=== PATIENT | male | born 1940 | race Caucasian/White ===

== ENCOUNTER 2024-06-28 10:11 | Emergency (ER) | payer OTHER ==
--- NOTE | 2024-06-28 11:01 | RAD REPORT ---
EXAMINATION: ONE VIEW CHEST XR CLINICAL INDICATION: COUGH TECHNIQUE: Frontal chest projection is submitted. Examination is limited by patient positioning and t echnique. COMPARISON: No prior exam. FINDINGS: The lungs are diffusely emphysematous but grossly clear. The heart is upper limit of normal in size. No displaced fractures identified. Sternotomy wires. IMPRESSION: COPD without an acute process suspected.
--- NOTE | 2024-06-28 11:08 | RAD REPORT ---
EXAMINATION: XR RIGHT FOOT CLINICAL INDICATION: Male, 84 years old. Pain;Swelling TECHNIQUE: Multiple views of the right foot were obtained. COMPARISON: 09/27/2022 FINDINGS: No acute fracture or dislocation is seen. Moderate calcaneal spurs.
[2024-06-28 11:19] LABS: Absolute Basophils 0.1 K/uL (0-0.5); Absolute Lymphocytes (CBC) 1.3 K/uL (0.7-4.9); Absolute Monocytes 1.3 K/uL (0.1-1.3); Absolute Neutrophil 9.7 K/uL (1.8-8.0); Basophils % 0.4 % (0-1.3); Eosinophils % 0.3 % (0-4.4); Hematocrit 37.1 % (39.6-49.0); Hemoglobin 11.9 g/dL (13.6-17.9); Lymphocytes % 10.2 % (15.3-44.8); MCH 29.4 pg (27.0-35.0); MCHC 32.1 g/dL (32.0-36.0); MCV 91.8 fL (80-100); MPV 7.3 fL (7.6-11.3); Monocytes % 10.4 % (3.3-12.3); Neutrophils % 78.7 % (41.7-73.7); Platelets 269 thou/uL (152-406); RBC Red Blood Cell Count 4.05 M/uL (4.33-5.43); Red Cell Distribution Width 14.1 % (12.1-15.2)
[2024-06-28] MEDS ORDERED: NA CHLORIDE 0.9% 1,000 ML ONE (11:20)
[2024-06-28 11:25] LABS: PT Prothrombin Time 13.2 SECONDS (9.4-12.5); Protime INR 1.18
--- NOTE | 2024-06-28 11:42 | RAD REPORT ---
EXAMINATION: US BILATERAL LOWER EXTREMITY VENOUS DOPPLER CLINICAL INDICATION: Pain;Swelling TECHNIQUE: Complete bilateral duplex sonography of the BILATERAL lower extremity veins was performed. The examination included compression for vein patency, color Doppler imaging and flow augmentation in response to distal compression of the distal external iliac, common femoral, femoral, popliteal, t ibial, and great and small saphenous veins. COMPARISON: No prior exam. FINDINGS: Duplex sonography testing of the veins of the BILATERAL lower extremity was performed. Color flow bobbi ging shows all veins to be compressible with [id number] color filling. Pulsatile and phasic flow is present within all lower extremity deep and superficial veins examined. IMPRESSION: There is no deep vein or superficial vein thrombosis.
[2024-06-28 11:44] LABS: Albumin 3.3 g/dL (3.4-5.0); Albumin/Globulin Ratio 0.8 (1.1-1.8); Anion Gap 10.5 mEq/L (5.0-15.0); Bilirubin Direct 0.3 mg/dL (0-0.2); Bilirubin Indirect, Calculated 0.6 mg/dL (0.2-0.8); Bilirubin Total 0.9 mg/dL (0.2-1.0); Globulin 3.9 g/dL (2.3-3.5); Magnesium 2.2 mg/dL (1.6-2.4); Potassium 3.5 mEq/L (3.5-5.1); Protein, Total 7.2 g/dL (6.4-8.2); Troponin High Sensitivity 32.3 pg/mL (<58.9)
[2024-06-28] MEDS ORDERED: VANCOMYCIN 1 GM/VIAL ONE (11:56)
[2024-06-28] MEDS ORDERED: ONDANSETRON 4 MG/2 ML VIAL ONE (11:56)
[2024-06-28] MEDS ORDERED: VANCOMYCIN 500 MG/VIAL ONE (11:57)
[2024-06-28] MEDS ORDERED: MORPHINE 4 MG/ML SYR ONE (11:57)
[2024-06-28] MEDS ORDERED: NA CHLORIDE 0.9% 250 ML ONE (11:57)
[2024-06-28] MEDS ORDERED: CEFAZOLIN SODIUM 2 GM/VIAL ONE (11:57)
[2024-06-28] MEDS ORDERED: levoFLOXacin 750 MG TAB ONE (11:57)
[2024-06-28] MEDS ORDERED: NA CHLORIDE 0.9% 100 ML ONE (11:57)
--- NOTE | 2024-06-28 11:57 | EDPHYS ---
Physician Documentation [facility] Name: Juan Gamble Age: 84 yrs Sex: Male : 1940 Arrival Date: 06/28/2024 Time: 10:11 Bed 3 Private MD: Andrews Orozco HPI: 06/28 11:49 This 84 yrs old Male presents to ER via Wheelchair with complaints of Right theresa foot swelling post Sx. 11:49 The patient presents with decreased range of motion, pain, swelling, tenderness. The theresa complaints affect the lateral aspect of right calf, right ankle, lateral aspect of right foot, medial aspect of right calf, medial aspect of right foot, right hamilton, anterior aspect of right ankle and dorsum of right foot. Context: resulted from a penetrating injury, an unknown cause, sp surgery. Modifying factors: The symptoms are alleviated by elevating leg, remaining still, the symptoms are aggravated by movement, weight bearing. Associated signs and symptoms: Pertinent positives: swelling, warmth, weakness. The patient presents with an abscess, moderate-sized, decreased range of motion, an injury, pain. Context: resulted from surgery 06/03. Onset: The symptoms/episode began/occurred 2 week(s) ago. Modifying factors: The symptoms are alleviated by elevation of extremity, the symptoms are aggravated by weight bearing, movement, wearing shoes. Historical: - Allergies: 10:23 PENICILLINS; iw - Home Meds: 10:23 clopidogrel 75 mg oral tablet daily [Active]; hydrocortisone 10 mg Oral tablet 2 times iw per day [Active]; lisinopril 20 mg Oral tablet daily [Active]; lovastatin 40 mg Oral tablet daily [Active]; levothyroxine 75 mcg tablet daily [Active]; - PSHx: 10:23 feet; valve replacement; iw - Immunization history:: Adult Immunizations not up to date. - Infectious Disease History:: Denies. - Social history:: Smoking status: Patient denies any tobacco usage or history of. ROS: 11:52 Constitutional: Negative for fever, chills, and weight loss, Eyes: Negative for injury, theresa pain, redness, and discharge, ENT: Negative for injury, pain, and discharge, Neck: Negative for injury, pain, and swelling, Cardiovascular: Negative for chest pain, palpitations, and edema, Respiratory: Negative for shortness of breath, cough, wheezing, and pleuritic chest pain, Abdomen/GI: Negative for abdominal pain, nausea, vomiting, diarrhea, and constipation, Back: Negative for injury and pain, : Negative for injury, bleeding, discharge, and swelling, Skin: Negative for injury, rash, and discoloration, Neuro: Negative for headache, weakness, numbness, tingling, and seizure, Psych: Negative for depression, anxiety, suicide ideation, homicidal ideation, and hallucinations, Allergy/Immunology: Negative for hives, rash, and allergies, Endocrine: Negative for neck swelling, polydipsia, polyuria, polyphagia, and marked weight changes, Hematologic/Lymphatic: Negative for swollen nodes, abnormal bleeding, and unusual bruising, 11:52 MS/extremity: Positive for contusion, decreased range of motion, pain, swelling, tenderness, of the right foot and right leg, Exam: 11:52 Constitutional: This is a well developed, well nourished patient who is awake, alert, theresa and in no acute distress. Head/Face: Normocephalic, atraumatic. Eyes: Pupils equal round and reactive to light, extra-ocular motions intact. Lids and lashes normal. Conjunctiva and sclera are non-icteric and not injected. Cornea within normal limits. Periorbital areas with no swelling, redness, or edema. ENT: Nares patent. No nasal discharge, no septal abnormalities noted. Tympanic membranes are normal and external auditory canals are clear. Oropharynx with no redness, swelling, or masses, exudates, or evidence of obstruction, uvula midline. Mucous membranes moist. Neck: Trachea midline, no thyromegaly or masses palpated, and no cervical lymphadenopathy. Supple, full range of motion without nuchal rigidity, or vertebral point tenderness. No Meningismus. Chest/axilla: Normal chest wall appearance and motion. Nontender with no deformity. No lesions are appreciated. Cardiovascular: Regular rate and rhythm with a normal S1 and S2. No gallops, murmurs, or rubs. Normal PMI, no JVD. No pulse deficits. Respiratory: Lungs have equal breath sounds bilaterally, clear to auscultation and percussion. No rales, rhonchi or wheezes noted. No increased work of breathing, no retractions or nasal flaring. Abdomen/GI: Soft, non-tender, with normal bowel sounds. No distension or tympany. No guarding or rebound. No evidence of tenderness throughout. Back: No spinal tenderness. No costovertebral tenderness. Full range of motion. Male : Normal genitalia with no discharge or lesions. Neuro: Awake and alert, GCS 15, oriented to person, place, time, and situation. Cranial nerves II-XII grossly intact. Motor strength 5/5 in all extremities. Sensory grossly intact. Cerebellar exam normal. Normal gait. Psych: Awake, alert, with orientation to person, place and time. Behavior, mood, and affect are within normal limits. 11:52 Skin: cellulitis, that is moderate, induration, that is moderate is noted, 12:01 ECG was reviewed by the Attending Physician. [facility] Vital Signs: 10:21 BP 138 / 60; Pulse 88; Resp 16; Temp 98.6; Pulse Ox 100% ; Weight 90.72 kg; Height 6 iw ft. 0 in. ; Pain 9/10; 12:45 BP 167 / 87; Pulse 85; Resp 17 S; Pulse Ox 100% on R/A; kc6 14:06 BP 128 / 50; Pulse 86; Resp 15 S; Pulse Ox 100% on R/A; kc6 15:35 BP 110 / 66; Pulse 87; Resp 17 S; Pulse Ox 100% on R/A; kc6 10:21 Body Mass Index 27.12 (90.72 kg, 182.88 cm) iw 10:21 Pain Scale: Adult iw Douglas Coma Score: 11:52 Eye Response: spontaneous(4). Motor Response: obeys commands(6). Verbal Response: theresa oriented(5). Total: 15. MDM: 10:39 Medical Screening Exam initiated [facility] 11:53 Differential diagnosis: closed fracture, contusion, abrasion, sprain, gout, cellulitis. [facility] Data reviewed: vital signs, nurses notes, lab test result(s), EKG, radiologic studies, doppler, plain films. Consideration of Admission/Observation Escalation of care including admission/observation considered. I considered the following discharge prescriptions or medication management in the emergency department Medications were administered in the Emergency Department. See MAR. Independent interpretation of the following test(s) in the Emergency Department EKG: See my EKG interpretation above. Test considered but Not performed: MRI: no mri foot. Historians other than the Patient: Spouse/Significant Other: well informed. Care significantly affected by the following chronic conditions: Chronic Obstructive Pulmonary Disease. 06/28 10:40 Order name: Basic Metabolic Panel; Complete Time: 11:48 [facility] 06/28 10:40 Order name: CBC with Diff; Complete Time: 11:48 06/28 10:40 Order name: LFT's; Complete Time: 11:48 06/28 10:40 Order name: Magnesium; Complete Time: 11:48 06/28 10:40 Order name: NT PRO-BNP; Complete Time: 11:48 06/28 10:40 Order name: PT-INR; Complete Time: 11:48 [facility] 06/28 10:40 Order name: Troponin HS; Complete Time: 11:48 [facility] 06/28 10:40 Order name: Blood Culture Adult (2) theresa 06/28 10:40 Order name: CRP; Complete Time: 11:48 [facility] 06/28 10:40 Order name: XRAY Chest (1 view); Complete Time: 11:48 [facility] 06/28 10:40 Order name: US Extremity Venous W Compression Bunny; Complete Time: 11:48 [facility] 06/28 10:40 Order name: Foot Right 3 View XRAY; Complete Time: 11:48 06/28 10:40 Order name: Cardiac monitoring; Complete Time: 10:55 [facility] 06/28 10:40 Order name: EKG - Nurse/Tech; Complete Time: 10:55 [facility] 06/28 10:40 Order name: IV Saline Lock; Complete Time: 11:14 [facility] 06/28 10:40 Order name: Labs collected and sent; Complete Time: 11:14 [facility] 06/28 10:40 Order name: O2 Per Protocol; Complete Time: 10:41 [facility] 06/28 10:40 Order name: O2 Sat Monitoring; Complete Time: 10:42 [facility] EC:01 Rate is 77 beats/min. Rhythm is regular. QRS [place] is Normal. [place] interval is prolonged threesa at 214 msec. QRS interval is normal. QT interval is normal. No Q waves. T waves are Normal. No ST changes noted. Clinical impression: NSR w/ Non-specific ST/T Changes and No evidence of ischemia. Interpreted by me. Reviewed by me. Administered Medications: 11:53 Drug: NS 0.9% IV 500 ml 500 ml IV at 1 bolus once; to be given as a bolus over 30 kc6 minutes Volume: 500 ml; Route: IV; Rate: 1 bolus; Site: left antecubital; 12:46 Follow up: Response: No adverse reaction; IV Status: Completed infusion; IV Intake: kc6 500ml 11:53 Drug: NS 0.9% IV 500 ml 500 ml IV at 125 ml/hr once Volume: 500 ml; Route: IV; Rate: kc6 125 ml/hr; Site: left antecubital; 12:16 Drug: vancoMYCIN IVPB 1.5 grams IVPB at calculated rate once Route: IVPB; Rate: kc6 calculated rate; Site: left antecubital; 13:19 Follow up: Response: No adverse reaction; IV Status: Completed infusion; IV Intake: kc6 250ml 12:16 Drug: morphine IVP or IV 4 mg IVP once over 4 mins Route: IVP; Infused Over: 4 mins; kc6 Site: left antecubital; 12:46 Follow up: Response: No adverse reaction; Pain is decreased; RASS: Alert and Calm (0) kc6 12:16 Drug: Ondansetron IVP 4 mg IVP once; over 2 minutes Route: IVP; Site: left antecubital; kc6 12:46 Follow up: Response: No adverse reaction kc6 12:16 Drug: LevOfloxacin PO 750 mg PO once Route: PO; kc6 12:46 Follow up: Response: No adverse reaction kc6 13:19 Drug: ceFAZolin IVPB 2 grams IVPB once over 30 mins; (mix in 100 mL NS) Route: IVPB; kc6 Infused Over: 30 mins; Site: left antecubital; 14:05 Follow up: Response: No adverse reaction; IV Status: Completed infusion; IV Intake: kc6 100ml Disposition Summary: 06/28/24 11:56 Transfer Ordered Notes: Transfer Location: [facility] theresa Reason: Higher level of care theresa Condition: Fair theresa Problem: new theresa Symptoms: have improved theresa Accepting Physician: to dr alejandro(06/28/24 15:37) kc6 Diagnosis - Cellulitis of other parts of limb - right foot, sp foot surgey 06/03 theresa - Elevated white blood cell count theresa Forms: - Medication Reconciliation Form theresa - SBAR form theresa Signatures: Dispatcher [employer] Andrews Locke MD MD cha Williams, Irene RN RN iw Amber Barajas RN RN kc6 Corrections: (The following items were deleted from the chart) 10:26 10:23 Allergies: No Known Allergies; [facility] 10:41 10:41 BASIC METABOLIC PANEL+C.LAB.BRZ ordered. EDMS EDMS 10:41 10:41 CBC+H.LAB.BRZ ordered. EDMS EDMS 10:41 10:41 HEPATIC FUNCTION+C.LAB.BRZ ordered. EDMS EDMS 10:41 10:41 MAGNESIUM+C.LAB.BRZ ordered. EDMS EDMS 10:41 10:41 PROBNP+C.LAB.BRZ ordered. EDMS EDMS 10:41 10:41 PROTIME (+INR)+COAG.LAB.BRZ ordered. EDMS EDMS 10:41 10:41 Troponin High Sensitivity+C.LAB.BRZ ordered. EDMS EDMS 10:41 10:41 BLOOD CULTURE*+BA.LAB.BRZ ordered. EDMS EDMS 10:41 10:41 C-REACTIVE PROTEIN+C.LAB.BRZ ordered. EDMS EDMS 10:41 10:41 Chest Single View+RAD.RAD.BRZ ordered. EDMS EDMS 10:41 10:41 Extrem Venous W Compression Bunyn+US.RAD.BRZ ordered. EDMS EDMS 10:41 10:41 Foot Right 3 View+RAD.RAD.BRZ ordered. EDMS EDMS 15:37 11:[address] flavia cardenas kc6
--- NOTE | 2024-06-28 11:57 | ER ---
Nurse's Notes [facility] Name: Juan Gamble Age: 84 yrs Sex: Male : 1940 Arrival Date: 06/28/2024 Time: 10:11 Bed 3 Private MD: Diagnosis: Cellulitis of other parts of limb-right foot, sp foot surgey 06/03;Elevated white blood cell count Presentation: 06/28 10:21 Chief complaint: Parent and/or Guardian states: he had surgery to remove bone spurs on iw both feet the day before thanksgiving and now his right foot is red and swollen and moving up the leg. Coronavirus screen: At this time, the client does not indicate any symptoms associated with coronavirus-19. Ebola Screen: No symptoms or risks identified at this time. Initial Sepsis Screen: Does the patient meet any 2 criteria? No. Patient's initial sepsis screen is negative. Does the patient have a suspected source of infection? No. Patient's initial sepsis screen is negative. Risk Assessment: Do you want to hurt yourself or someone else? Patient reports no desire to harm self or others. Onset of symptoms was June 2024. 10:21 Method Of Arrival: Wheelchair iw 10:21 Acuity: BRAD 3 iw Historical: - Allergies: 10:23 PENICILLINS; iw - Home Meds: 10:23 clopidogrel 75 mg oral tablet daily [Active]; hydrocortisone 10 mg Oral tablet 2 times iw per day [Active]; lisinopril 20 mg Oral tablet daily [Active]; lovastatin 40 mg Oral tablet daily [Active]; levothyroxine 75 mcg tablet daily [Active]; - PSHx: 10:23 feet; valve replacement; iw - Immunization history:: Adult Immunizations not up to date. - Infectious Disease History:: Denies. - Social history:: Smoking status: Patient denies any tobacco usage or history of. Screenin:35 [facility] ED Fall Risk Assessment (Adult) History of falling in the last 3 months, kc6 including since admission No falls in past 3 months (0 pts) Confusion or Disorientation No (0 pts) Intoxicated or Sedated No (0 pts) Impaired Gait No (0 pts) Mobility Assist Device Used No (0 pt) Altered Elimination No (0 pt) Score/Fall Risk Level 0 - 2 = Low Risk Oriented to surroundings, Maintained a safe environment. Abuse screen: Denies threats or abuse. Denies injuries from another. Nutritional screening: No deficits noted. Tuberculosis screening: No symptoms or risk factors identified. Assessment: 10:35 General: Appears in no apparent distress. comfortable, well groomed, well developed, kc6 Behavior is calm, cooperative, appropriate for age. Pain: Complains of pain in right foot. Neuro: Level of Consciousness is awake, alert, obeys commands, Oriented to person, place, time, situation, Appropriate for age. Cardiovascular: Capillary refill < 3 seconds. Respiratory: Airway is patent Trachea midline Respiratory effort is even, unlabored, Respiratory pattern is regular, symmetrical. GI: No signs and/or symptoms were reported involving the gastrointestinal system. : No signs and/or symptoms were reported regarding the genitourinary system. EENT: No signs and/or symptoms were reported regarding the EENT system. Derm: Skin is healthy with good turgor, Skin is dry, Skin is jaundiced, pale, Skin temperature is warm Wound noted dorsum of right foot Wound is slightly open without any drainage. wound has erythema and swelling. Musculoskeletal: Circulation, motion, and sensation intact. Range of motion: intact in all extremities, Swelling present in right foot. 11:35 Reassessment: Patient appears in no apparent distress at this time. No changes from kc6 previously documented assessment. Patient and/or family updated on plan of care and expected duration. Pain level reassessed. Patient is alert, oriented x 3, equal unlabored respirations, skin warm/dry/pink. 12:45 Reassessment: Patient appears in no apparent distress at this time. No changes from kc6 previously documented assessment. Patient and/or family updated on plan of care and expected duration. Pain level reassessed. Patient is alert, oriented x 3, equal unlabored respirations, skin warm/dry/pink. 13:45 Reassessment: Patient appears in no apparent distress at this time. No changes from kc6 previously documented assessment. Patient and/or family updated on plan of care and expected duration. Pain level reassessed. Patient is alert, oriented x 3, equal unlabored respirations, skin warm/dry/pink. 15:35 Reassessment: Patient appears in no apparent distress at this time. No changes from kc6 previously documented assessment. Patient and/or family updated on plan of care and expected duration. Pain level reassessed. Patient is alert, oriented x 3, equal unlabored respirations, skin warm/dry/pink. Patient states feeling better. Patient states symptoms have improved. Vital Signs: 10:21 BP 138 / 60; Pulse 88; Resp 16; Temp 98.6; Pulse Ox 100% ; Weight 90.72 kg; Height 6 iw ft. 0 in. ; Pain 9/10; 12:45 BP 167 / 87; Pulse 85; Resp 17 S; Pulse Ox 100% on R/A; kc6 14:06 BP 128 / 50; Pulse 86; Resp 15 S; Pulse Ox 100% on R/A; kc6 15:35 BP 110 / 66; Pulse 87; Resp 17 S; Pulse Ox 100% on R/A; kc6 10:21 Body Mass Index 27.12 (90.72 kg, 182.88 cm) iw 10:21 Pain Scale: Adult iw Francis Coma Score: 11:52 Eye Response: spontaneous(4). Motor Response: obeys commands(6). Verbal Response: theresa oriented(5). Total: 15. ED Course: 10:15 Patient arrived in ED. ra3 10:23 Triage completed. iw 10:26 Amber Barajas, RN is Primary Nurse. kc6 10:26 Arm band placed on. iw 10:35 Patient has correct armband on for positive identification. Bed in low position. Call kc6 light in reach. Side rails up X 1. Adult w/ patient. Pulse ox on. NIBP on. Door closed. Noise minimized. Lights dimmed. Warm blanket given. Pillow given. 10:39 Andrews Yao MD is Attending Physician. theresa 10:53 XRAY Chest (1 view) In Process Unspecified. EDMS 10:53 Foot Right 3 View XRAY In Process Unspecified. EDMS 11:14 Inserted saline lock: 20 gauge in left antecubital area, using aseptic technique. Blood kc6 collected. Flushed with 10 mL NS. Patient maintains SpO2 saturation greater than 95% on room air. 11:40 US Extremity Venous W Compression Bunny In Process Unspecified. EDMS 15:36 No provider procedures requiring assistance completed. Patient transferred, IV remains kc6 in place. Administered Medications: 11:53 Drug: NS 0.9% IV 500 ml 500 ml IV at 1 bolus once; to be given as a bolus over 30 kc6 minutes Volume: 500 ml; Route: IV; Rate: 1 bolus; Site: left antecubital; 12:46 Follow up: Response: No adverse reaction; IV Status: Completed infusion; IV Intake: kc6 500ml 11:53 Drug: NS 0.9% IV 500 ml 500 ml IV at 125 ml/hr once Volume: 500 ml; Route: IV; Rate: kc6 125 ml/hr; Site: left antecubital; 12:16 Drug: vancoMYCIN IVPB 1.5 grams IVPB at calculated rate once Route: IVPB; Rate: kc6 calculated rate; Site: left antecubital; 13:19 Follow up: Response: No adverse reaction; IV Status: Completed infusion; IV Intake: kc6 250ml 12:16 Drug: morphine IVP or IV 4 mg IVP once over 4 mins Route: IVP; Infused Over: 4 mins; kc6 Site: left antecubital; 12:46 Follow up: Response: No adverse reaction; Pain is decreased; RASS: Alert and Calm (0) kc6 12:16 Drug: Ondansetron IVP 4 mg IVP once; over 2 minutes Route: IVP; Site: left antecubital; kc6 12:46 Follow up: Response: No adverse reaction kc6 12:16 Drug: LevOfloxacin PO 750 mg PO once Route: PO; kc6 12:46 Follow up: Response: No adverse reaction kc6 13:19 Drug: ceFAZolin IVPB 2 grams IVPB once over 30 mins; (mix in 100 mL NS) Route: IVPB; kc6 Infused Over: 30 mins; Site: left antecubital; 14:05 Follow up: Response: No adverse reaction; IV Status: Completed infusion; IV Intake: kc6 100ml Medication: 15:36 VIS not applicable for this client. kc6 Intake: 12:46 IV: 500ml; Total: 500ml. kc6 13:19 IV: 250ml; Total: 750ml. kc6 14:05 IV: 100ml; Total: 850ml. kc6 Outcome: 11:56 ER care complete, transfer ordered by MD. cardenas 15:36 Transferred by [facility] to [facility], Transfer form kc6 completed. 15:36 Condition: good 15:36 Instructed on the need for transfer, 15:37 Patient left the ED. kc6 Signatures: Dispatcher [employer] EDAndrews Bell MD MD cha Williams, Irene, RN RN iw Amber Barajas RN RN kcCayla Walker ra3 Corrections: (The following items were deleted from the chart) 10:26 10:23 Allergies: No Known Allergies; blue mcarthur
[2024-06-28 15:44] VITALS: TEMP 98.6; O2SAT 100
[2024-06-28 15:50] VITALS: BP 110/66
--- NOTE | 2024-06-29 11:09 | EKG ---
Test Date: 2024-06-28 Test Time: 10:53:18 Filler Operator: ABEL MEASUREMENT RESULTS: Intervals: Rate: 77 SD: 214 QRSD: 92 QT: 410 QTc: 463 [place]: P: 7 SD: 214 QRS: -20 T: 64 INTERPRETIVE STATEMENTS: Sinus rhythm with 1st degree AV block with occasional premature ventricular complexes Otherwise normal ECG No previous ECG available for comparison Electronically Signed On 06-29-24 11:07:10 [employer] by Dane Liu
== END 2024-06-28 15:37 | disposition short-term general hospital (02) ==
LOC: ER 10:11
DX: L03.115 Cellulitis of right lower limb (principal); Z98.890 Other specified postprocedural states; D72.829 Elevated white blood cell count, unspecified
CPT/HCPCS: 96365; 96367; 93005; 87040 ×2; 85025; 80048; 36415; 83735; 85610; 80076; 84484; 83880; 86140; 71045; 73630; 93970; 96375; 99285; J2405; J7050; J7030